=== PATIENT | female | born 1950 | race Caucasian/White ===

== ENCOUNTER 2021-12-04 09:19 | Emergency (ER) | payer MEDICARE, BC ==
[~2021-12-04] VITALS: Ht 167.6 cm; Wt 75.0 kg
[2021-12-04 09:53] VITALS: BP 150/84
[2021-12-04] MEDS ORDERED: IBUPROFEN 600 MG TABLET. PO ONE (10:00)
[2021-12-04] MEDS ORDERED: ACETAMINOPHEN 500 MG TABLET PO ONE (10:00)
--- NOTE | 2021-12-04 10:06 | PHYS DOC ---
Past History Past Surgical History: Hysterectomy Alcohol Use: None Adult General Chief Complaint Chief Complaint: ANKLE PROBLEM HPI HPI Patient is a 71-year-old female presenting for left ankle pain. Presents via POV after injuring her ankle yesterday at 9:30 PM, reports she was walking her dogs when she suffered an inversion type left foot ankle sprain. Reports focal pain to left ankle only without radiation. Has had difficulty bearing weight. She is done nothing in attempt to alleviate symptoms. She has history of breaking the same ankle in the past but no surgical intervention was performed Review of Systems Review of Systems Fourteen body systems of review of systems have been reviewed. See HPI for pertinent positives and negative responses, other desai all other systems are negative, non-pertinent or non-contributory Current Medications Current Medications Current Medications Medications (Trade) Dose Ordered Sig/Rick Start Time Stop Time Status Last Admin Dose Admin Acetaminophen (Tylenol) 1,000 mg 1X ONCE 12/04/21 10:00 12/04/21 10:01 UNV Ibuprofen (Motrin) 600 mg 1X ONCE 12/04/21 10:00 12/04/21 10:01 UNV Allergies Allergies Allergies Coded Allergies Type Severity Reaction Last Updated Verified No Known Drug Allergies 12/04/21 No Physical Exam Physical Exam Constitutional: Well developed, well nourished, no acute distress, non-toxic appearance. HENT: Normocephalic, atraumatic, bilateral external ears normal, oropharynx moist, no oral exudates, nose normal. Eyes: PERRLA, EOMI, conjunctiva normal, no discharge. Neck: Normal range of motion, no tenderness, supple, no stridor. Cardiovascular: Heart rate regular per monitor Lungs & Thorax: No respiratory distress or accessory muscle use, bilateral chest rise Abdomen: Abdomen soft, non-tender, bowel sounds present in all quadrants, no guarding or rebound, nonacute abdomen. Skin: Warm, dry, no erythema, no rash. Back: No tenderness, no CVA tenderness. Extremities: No cyanosis, no clubbing. Soft tissue lateral swelling over left lateral malleolus with pain to palpation superior left lateral malleolus and pain to palpation over left fibular head proximally with otherwise unremarkable formal examinations of left hip, left knee, left soft tissue compartments, left foot and left ankle. Cap refill less than 3 seconds in all distal digits Neurologic: Alert and oriented X 3, normal motor & sensory function, no focal deficits noted. Psychologic: Affect normal, judgement normal, mood normal. Current Patient Data Vital Signs Vital Signs Date Time Temp Pulse Resp B/P (MAP) Pulse Ox O2 Delivery O2 Flow Rate FiO2 12/04/21 09:53 98.4 79 16 150/84 (106) 97 Room Air EKG EKG [] Radiology/Procedures Radiology/Procedures EXAM: AP, lateral and sunrise views of the right knee. DATE: 12/04/2021 10:12 AM INDICATION: Reason: fib head pain with inversion ankle sprain / Spl. Instructions: / History: COMPARISON: No Prior FINDINGS: No acute fracture or dislocation. No joint effusion. Mild medial compartment joint space narrowing with small associated osteophytes. Atherosclerotic vascular calcifications are seen. IMPRESSION: No acute fracture or dislocation. Moderate left knee joint osteoarthritis. Electronically signed by: Morgan Landeros MD (12/04/2021 10:23 AM) EDVIN ///////////////////// EXAM: 3 views of the left ankle DATE: 12/04/2021 10:07 AM INDICATION: Reason: fall, twisted yesterday / Spl. Instructions: / History: COMPARISON: No Prior FINDINGS: Transverse fracture through the lateral malleolus is nondisplaced. Moderate overlying soft tissue swelling. Ankle mortise is congruent. Talar dome is intact. Joint spaces are preserved without significant degenerative/proliferative change. Vascular calcifications are seen. Calcaneal enthesophytes are seen. IMPRESSION: Nondisplaced transverse fracture through the lateral malleolus. Electronically signed by: Morgan Landeros MD (12/04/2021 10:21 AM) EDVIN Heart Score C/O Chest Pain: No Risk Factors: Risk Factors: DM, Current or recent (<one month) smoker, HTN, HLP, family history of CAD, obesity. Risk Scores: Risk Factors: DM, Current or recent (<one month) smoker, HTN, HLP, family history of CAD, obesity. Course & Med Decision Making Course & Med Decision Making ABCs unremarkable HPI physical exam and comprehensive ER work-up nonconcerning for any emergent or surgical issues I did disclose nondisplaced left lateral malleolus fracture. Joint decision to apply posterior splint that was reassessed after completion in adequate position with full motor or sensory neuro function intact No indication for emergent transfer and/or immediate surgical indication. Close outpatient follow-up with tooling specialist advised. Strict return cautions discussed prior to ER departure. Patient reports pain is well controlled with ibuprofen and Tylenol Dragon Disclaimer Dragon Disclaimer This electronic medical record was generated, in whole or in part, using a voice recognition dictation system. Departure Departure: Impression: Primary Impression: Fracture of left ankle, lateral malleolus Disposition: HOME / SELF CARE / HOMELESS Condition: STABLE Referrals: SARIAH MACKAY MD (PCP) CARMELITA BOX D[facility] Additional Instructions: You were seen for a fracture or broken bone. We spoke with the orthopedic doctors who need to see you in the orthopedic clinic. Their information is attached to your discharge packet. If you were provided a splint use this as directed. You should not use the affected body part until you follow up with orthopedics. Keep the area clean, dry, and avoid getting it wet. You should use ice, NSAIDs and/or Tylenol for pain , and elevation to help with swelling and pain. Return to the ED if you develop worsening pain, numbness, tingling, weakness, fever, redness, or any other new or concerning symptoms. SIENNA PEREZ DO Dec 04, 2021 10:06
--- NOTE | 2021-12-04 10:24 | RAD ---
EXAM: 3 views of the left ankle DATE: 12/04/2021 10:07 AM INDICATION: Reason: fall, twisted yesterday / Spl. Instructions: / History: COMPARISON: No Prior FINDINGS: Transverse fracture through the lateral malleolus is nondisplaced. Moderate overlying soft tissue swe lling. Ankle mortise is congruent. Talar dome is intact. Joint spaces are preserved without significa nt degenerative/proliferative change. Vascular calcifications are seen. Calcaneal enthesophytes are s een. IMPRESSION: Nondisplaced transverse fracture through the lateral malleolus. Electronically signed by: Morgan Landeros MD (12/04/2021 10:21 AM) EDVIN
--- NOTE | 2021-12-04 10:25 | RAD ---
EXAM: AP, lateral and sunrise views of the right knee. DATE: 12/04/2021 10:12 AM INDICATION: Reason: fib head pain with inversion ankle sprain / Spl. Instructions: / History: COMPARISON: No Prior FINDINGS: No acute fracture or dislocation. No joint effusion. Mild medial compartment joint space narrowing w ith small associated osteophytes. Atherosclerotic vascular calcifications are seen. IMPRESSION: No acute fracture or dislocation. Moderate left knee joint osteoarthritis. Electronically signed by: Morgan Landeros MD (12/04/2021 10:23 AM) EDVIN
== END 2021-12-04 11:27 | disposition home or self-care (01) ==
LOC: ER 09:19
DX: S82.892A Other fracture of left lower leg, initial encounter for closed fracture (principal); X50.9XXA Other and unspecified overexertion or strenuous movements or postures, initial encounter; Y93.01 Activity, walking, marching and hiking; Y92.89 Other specified places as the place of occurrence of the external cause; Y99.8 Other external cause status
CPT/HCPCS: 29515; 73562; 73610; 99284